=== PATIENT | male | born 1960 | race Caucasian/White ===

== ENCOUNTER 2018-10-26 07:38 | Outpatient (CLI) | payer OTHER ==
--- NOTE | 2018-10-26 08:57 | RAD ---
CERVICAL SPINE 4 VIEWS: Date: 10/26/18 HISTORY: Bilateral leg pain and numbness. COMPARISON: MRI from 2013. FINDINGS: The open-mouth odontoid view is normal. No acute fracture or malalignment. Moderate degenerative disc space narrowing at C5-6. Mild narrowing at C4-5 and C6-7. No significant listhesis. No translation with flexion or extension. IMPRESSION: No significant translation with flexion or extension. POS: [facility]
--- NOTE | 2018-10-26 09:41 | RAD ---
LUMBAR SPINE FOUR VIEW: History: M54.5 low back pain; M54.16 lumbar radiculopathy. Comparison: Lumbar spine radiographs, 2016. FINDINGS: Five non-rib bearing lumbar type vertebrae. Anterior superior fracture of L4 is not significantly sarah nged. Mild narrowing L3-4 and L4-5 anterior spinous space between spinus processes. There is a fracture of the L2 superior endplate, also unchanged. No significant listhesis. No transla tion with flexion or extension. IMPRESSION: No significant translation with flexion or extension. POS: [facility]
--- NOTE | 2018-10-26 11:07 | MRI ---
MRI THORACIC SPINE WITHOUT CONTRAST: HISTORY: Lumbar radiculopathy. Bilateral leg pain. Numbness in the bilateral upper extremities, left greater than right. COMPARISON: None. TECHNIQUE: MRI of the thoracic spine is performed without intravenous Gadolinium administration. Multisequentia l, multiplanar imaging is performed. FINDINGS: Visualized mediastinal structures, lung parenchyma, and solid organs have appropriate signal intensit y. The thoracic cord has a normal size and signal intensity. No cord atrophy. No cord expansion. No T2 hyperintensity in the cord. There is appropriate T1 marrow signal intensity of the thoracic vertebrae. There is intrinsic T1 hyp ointensity with associated T2 hypointensity at the T7 level. There is no associated STIR hyperintens ity. The possibility of a sclerotic focus is raised. Correlation with a thoracic spine CT is recomm ended. There is intrinsic T1 hyperintensity with associated T2 and STIR hyperintensity at the T10 le galina compatible with a large hemangioma. Additional smaller hemangioma is suspected at T7, T11. Kaylie lar signal intensity is also noted along the right pedicle at T10. There is no evidence of vertebral body fracture. No significant STIR hyperintensity to suggest vertebral body edema or ligamentous in jury. T9-T10: Small left paracentral disk bulge with mild deformity of the thecal sac and left hemicord. No T2 hyperintensity in the cord. T10-T11: There appears to be a left paracentral disk bulge that abuts the thecal sac. At least mild central canal stenosis. IMPRESSION: 1. Degenerative disk disease at T9-T10 and T10-T11 with at least mild central canal stenosis. 2. No cord signal abnormality. 3. Multiple vertebral body hemangiomas. 4. T1 and T2 hypointense lesion at T7 which may represent a sclerotic focus. Better interrogation w [facility] noncontrast thoracic spine CT. POS: [facility]
--- NOTE | 2018-10-26 11:39 | MRI ---
MRI LUMBAR SPINE WITH AND WITHOUT CONTRAST: COMPARISON: 09/03/2015. HISTORY: Lumbar radiculopathy. Bilateral lower extremity pain and numbness with bilateral upper extremity num bness, left greater than right. Previous lumbar surgery x 2. COMPARISON: 09/03/2015. TECHNIQUE: MRI lumbar spine is performed with and without intravenous Gadolinium administration. Multisequentia l, multiplanar imaging is performed. FINDINGS: There is interval mild loss of vertebral body height at the L2 level. Currently, there is no signifi cant STIR hyperintensity to suggest an acute component. Rather, the mild los of vertebral body heigh t is presumed to be chronic. There is subtle T2 hyperintensity along the inferior end plate of L2 wh ich is more compatible with a Schmorl's node. There is an intrinsic and essentially stable T1 and T2 hyperintensity at the L2 level compatible with a vertebral body hemangioma. There is appropriate signal intensity in the visualized psoas muscles. There is a persistent T1 hype rintensity in the right renal cortex. Conus medullaris terminates at the upper aspect of L1. On the postcontrast images, there is no abnormal enhancement with regards to the vertebral bodies. T here is no abnormal enhancement with regards to the thecal sac, including the cauda equina and conus medullaris. T12-L1: Adequate disk hydration. No significant central canal stenosis. Neural foramen are patent. L1-L2: Interval mild loss of disk space height. There is no significant central canal stenosis. Ne ural foramen are patent. L2-L3: Adequate disk hydration. No significant central canal stenosis. Neural foramina are patent. L3-L4: Adequate disk hydration. Generalized disk bulge without significant central canal stenosis. Right neural foramen is patent. Mild left neural foraminal narrowing. L4-L5: Interval right hemilaminectomy defect. Previously noted disk material is no longer evident. There is no significant central canal stenosis. Subarticular zones are unremarkable. Neural forami na are mildly narrowed bilaterally, unchanged. On the post contrast images, minimal enhancing scar t issue at the right hemilaminotomy defect site. L5-S1: Stable right laminectomy defect. There is stable signal intensity on the posterior midline a nd right paracentral aspect of the disk. There is stable enhancing scar tissue in the right subartic ular zone. There is stable slight displacement of the traversing right S1 nerve root. There is no s ignificant stenosis of the thecal sac. The left subarticular zone is unremarkable. Mild bilateral f oraminal narrowing is redemonstrated. IMPRESSION: 1. Interval resolution of a previously noted disk extrusion at the L4-L5 level. There is no signifi cant central canal stenosis or foraminal narrowing at L4-L5. 2. Stable postoperative changes at L5-S1. POS: [facility]
--- NOTE | 2018-10-26 12:31 | MRI ---
CERVICAL SPINE MRI WITH AND WITHOUT COTNRAST: COMPARISON: 06/20/2014. TECHNIQUE: Cervical spine MRI is performed with and without intravenous Gadolinium administration. Multisequent ial, multiplanar imaging is performed. FINDINGS: There is appropriate T1 marrow signal intensity of the cervical vertebrae, with the exception of the C5 vertebral body. There is some mild T1 hypointensity, STIR hyperintensity, and enhancement involvi ng the right aspect of the vertebral body. Findings are nonspecific. Remaining cervical vertebrae d o not have STIR hyperintensity. No MRI evidence of ligamentous injury. Visualized brain parenchyma, cervicomedullary junction, cervical cord, and the upper thoracic cord have a normal size and signal intensity. On the postcontrast images, there is no abnormal enhancement in the visualized brain parenchyma and t he spinal cord. C2-C3: No significant central canal stenosis. Mild right foraminal narrowing due to hypertrophic ch anges of the uncovertebral joint. The left neural foramen is patent. C3-C4: No significant central canal stenosis. Right neural foramen is patent. Mild left foraminal narrowing due to hypertrophic change of the uncovertebral joint. C4-C5: No significant central canal stenosis. Moderate narrowing of bilateral neural foramina due t o hypertrophic change of the uncovertebral joint. C5-C6: Minimal left and right paracentral disk bulges. No significant central canal stenosis. Mode rate to severe right and mild to moderate left foraminal narrowing due to hypertrophic changes of the uncovertebral joints. There is mild bilateral facet hypertrophy. C6-C7: No significant central canal stenosis. Neural foramina are patent bilaterally. C7-T1: No significant central canal stenosis. Neural foramina are patent. IMPRESSION: 1. No significant central canal stenosis. 2. Varying degrees of foraminal narrowing as above. 3. Subtle marrow signal abnormality involving the C5 vertebral body predominantly on the right aspec t of the vertebral body. Findings are nonspecific. No associated fracture. POS: [facility]
== END 2018-10-26 07:39 | disposition home or self-care (01) ==
LOC: TBSIIMAG 07:38
PROVIDERS: ATTEND Physician Assistant Surgical
DX: M54.2 Cervicalgia (principal); R20.2 Paresthesia of skin; M48.02 Spinal stenosis, cervical region; M51.16 Intervertebral disc disorders with radiculopathy, lumbar region; M51.34 Other intervertebral disc degeneration, thoracic region; M48.04 Spinal stenosis, thoracic region; D18.01 Hemangioma of skin and subcutaneous tissue; G54.3 Thoracic root disorders, not elsewhere classified
CPT/HCPCS: 72050; 72110; 72146; 72156; 72158

== ENCOUNTER 2019-03-28 09:25 | Outpatient (CLI) | payer OTHER ==
--- NOTE | 2019-03-28 10:58 | MRI ---
MRI BRAIN WITH AND WITHOUT CONTRAST: DATE: 03/28/2019. HISTORY: A 58-year-old male with headache. TECHNIQUE: Multiple sequences obtained in axial, sagittal, and coronal planes; pre and post IV injection of gado linium-based contrast agent: 20 mL of MultiHance. FINDINGS: The ventricles are normal in size and configuration. There is no major intraaxial signal abnormality , restricted diffusion, abnormal intraaxial enhancement, mass, midline shift or any other mass effect , recent intraaxial hemorrhage, or extraaxial fluid collection. The sella turcica is expanded, and f illed mostly with CSF. The pituitary gland is flattened and thinned along the floor of the sella tur cica. IMPRESSION: 1. Partially empty sella. 2. Otherwise, normal. jn[] POS: [facility]
== END 2019-03-28 09:26 | disposition home or self-care (01) ==
LOC: TBSIIMAG 09:25
PROVIDERS: ATTEND Surgery
DX: R51 Headache (principal)
CPT/HCPCS: 70553